=== PATIENT | female | born 1995 | race American Indian/Alaskan Native ===

== ENCOUNTER 2018-11-12 21:07 | Inpatient (IN) | payer OTHER ==
[2018-11-13] MEDS ORDERED: XYLOCAINE 2% INFILTRATI ONE (00:40)
[2018-11-13] MEDS ORDERED: SUBLIMAZE IV PRN (00:40)
[2018-11-13] MEDS ORDERED: MINERAL OIL PO PRN (00:40)
[2018-11-13] MEDS ORDERED: BRETHINE IVP PRN (00:40)
[2018-11-13] MEDS ORDERED: BRETHINE SUB-Q PRN (00:40)
[2018-11-13] MEDS ORDERED: CERVIDIL VG ONE (00:40)
[2018-11-13] MEDS ORDERED: STADOL IV PRN (00:40)
[2018-11-13 01:04] LABS: Hematocrit 30.6 % (30.3-42.9); Hemoglobin 9.9 gm/dl (10.1-14.3); Mean Corpuscular HGB Conc 32 % (30-34); Mean Corpuscular Volume 75 fl (79-97); Platelet Count 164 K/mm3 (140-440); Red Blood Count 4.07 M/mm3 (3.65-5.03)
[2018-11-13] MEDS: LACTATED RINGERS 1,000 ML IV SCH ×3 (02:08→17:27)
[2018-11-13] MEDS ORDERED: AMBIEN PO PRN (02:09)
--- NOTE | 2018-11-13 07:43 | History and Physical Report ---
History of Present Illness Date of examination: 11/13/18 Date of admission: 11/12/18 21:07 Chief complaint: IOL for post-dates gestation Past History Past Medical History: no pertinent history Past Surgical History: no surgical history Family/Genetic History: none Social history: no significant social history - Obstetrical History Expected Date of Delivery: 11/03/18 Actual Gestation: 41 Week(s) 3 Day(s) : 1 Para: 0 Medications and Allergies Allergies Allergy/AdvReac Type Severity Reaction Status Date / Time No Known Allergies Allergy Unverified 11/13/18 00:32 Active Meds: Active Medications Butorphanol Tartrate (Stadol) 2 mg IV Q2H PRN PRN Reason: Pain , Severe (7-10) Ephedrine Sulfate (Ephedrine Sulfate) 10 mg IV Q2M PRN PRN Reason: Hypotension Fentanyl (Sublimaze) 100 mcg IV Q2H PRN PRN Reason: Labor Pain Lactated Ringer's (Lactated Ringers) 1,000 mls @ 125 mls/hr IV DIRECT DELFINA Last Admin: 11/13/18 02:08 Dose: 125 mls/hr Documented by: Mineral Oil (Mineral Oil) 30 ml PO QHS PRN PRN Reason: Constipation Terbutaline Sulfate (Brethine) 0.25 mg SUB-Q ONCE PRN PRN Reason: Hyperstimulation/Hypertonicity Terbutaline Sulfate (Brethine) 0.25 mg IVP ONCE PRN PRN Reason: Hyperstimulation/Hypertonicity Zolpidem Tartrate (Ambien) 5 mg PO QHS PRN PRN Reason: Sleep Last Admin: 11/13/18 02:18 Dose: 5 mg Documented by: Review of Systems All systems: negative - Vital Signs Vital signs: Vital Signs Temp Pulse Resp BP Pulse Ox 97.6 F 67 16 122/73 99 11/13/18 02:05 11/13/18 02:05 11/13/18 02:05 11/13/18 02:05 11/13/18 02:05 Temp Pulse Resp BP Pulse Ox 98.4 F 72 16 127/61 99 11/13/18 06:30 11/13/18 06:30 11/13/18 06:30 11/13/18 03:02 11/13/18 03:00 - Physical Exam Breasts: Positive: deferred Cardiovascular: Regular rate, Normal S1, Normal S2, No murmurs Lungs: Positive: Clear to auscultation Abdomen: Positive: normal appearance, soft Genitourinary (Female): Positive: normal external genitalia Vagina: Positive: normal moisture Uterus: Positive: normal size, normal contour - Obstetrical FHR: auscultation normal, category 1 Uterine Contraction Monitor Mode: External Uterine Contraction Pattern: Irregular Uterine Contraction Intensity: Mild Results Result Diagrams: 11/13/18 00:49 Abnormal lab results 11/13/18 Range/Units 00:49 Hgb 9.9 L (10.1-14.3) gm/dl MCV 75 L (79-97) fl MCH 24 L (28-32) pg RDW 16.0 H (13.2-15.2) % All other labs normal. Assessment and Plan 1. 23 yo at 41.3 wks EGA 2. FHT cat [address] 4. GBS negative Plan: 1. Continue current care 2. Reevaluate labor progress after 12 hours of Cervidil 3. Anticipate
[2018-11-13] MEDS ORDERED: MARCAINE 0.25% INFILTRATI ONE ×2 (17:31→20:12)
[2018-11-13] MEDS ORDERED: NARCAN 2 MG/2 ML IV PRN (17:50)
--- NOTE | 2018-11-13 17:50 | Anesthesia Consultation ---
Anesthesia Consult and Med Hx Date of service: 11/13/18 - Airway Anesthetic Teeth Evaluation: Good ROM Head & Neck: Adequate Mental/Hyoid Distance: Adequate Mallampati Class: Class II Intubation Access Assessment: Good - Cardiac Exam Cardiac Exam: RRR - Pre-Operative Health Status ASA Pre-Surgery Classification: ASA1 Proposed Anesthetic Plan: Epidural - Pulmonary Hx Asthma: No - Cardiovascular System Hx Hypertension: No - Central Nervous System Hx Seizures: No Hx Psychiatric Problems: No - Endocrine Hx Renal Disease: No Hx Hypothyroidism: No Hx Hyperthyroidism: No - Hematic Hx Anemia: No Hx Sickle Cell Disease: No - Other Systems Hx Alcohol Use: No
[2018-11-13] MEDS ORDERED: fentaNYL-BUPIV 2 MCG/ML-0.125% 200 MCG/100 ML BAG EPIDURAL SCH (18:00)
--- NOTE | 2018-11-13 19:40 | Event Note ---
Date: 11/13/18 Patietn is 8/100/-1 Arom light meconium at 720p. Will add pitocin. cat1 strip. continue and expect vaginal delivery
[2018-11-13] MEDS ORDERED: PITOCin/NS 20 UNIT/1000ML DRIP 20,000 MILLIUNITS/1,000 ML BAG IV ONE (19:48)
[2018-11-13] MEDS ORDERED: PITOCin/NS 30 UNIT/500ML 30,000 MILLIUNITS/500 ML BAG IV ONE (19:48)
[2018-11-13] MEDS ORDERED: PITOCin/NS 30 UNIT/500ML 30 UNITS/500 ML BAG IV SCH (20:00)
[2018-11-13] MEDS ORDERED: ANCEF/STERILE WATER 2 GM/20 ML 2 GM/20 ML SYRINGE IV ONE (20:48)
[2018-11-13] MEDS ORDERED: REGLAN ONE (20:48)
[2018-11-13] MEDS ORDERED: PEPCID IV ONE ×2 (20:48→22:19)
[2018-11-13] MEDS ORDERED: BICITRA ONE (20:48)
[2018-11-13] MEDS ORDERED: XYLOCAINE 2%/ EPI 1:200,000 INFILTRATI ONE (20:49)
[2018-11-13] MEDS ORDERED: NACL 0.9% IR ONE (21:00)
[2018-11-13] MEDS ORDERED: WATER FOR IRRIG STERILE IR ONE (21:00)
[2018-11-13] MEDS ORDERED: SUBLIMAZE ONE (21:19)
[2018-11-13] MEDS ORDERED: MARCAINE 0.5% INFILTRATI ONE (21:19)
[2018-11-13] MEDS ORDERED: ZOFRAN ONE (21:35)
[2018-11-13] MEDS ORDERED: TORADOL ONE (21:35)
[2018-11-13] MEDS ORDERED: DILAUDID ONE (21:49)
--- NOTE | 2018-11-13 22:13 | Procedure Note ---
OB Delivery Note - Delivery Date of Delivery: 11/13/18 Surgeon: DANIEL GIRARD Estimated blood loss: other (700cc) - Section Preop diagnosis: nonreassuring FHR tracing Postop diagnosis: same section procedure: section Disposition: PACU Complications: none Narrative: see op note - A at 1 minute: 8 at 5 minutes: 9 Infant Gender: Male (7 pounds 11 oz)
--- NOTE | 2018-11-13 22:18 | Operative Report ---
Operative Report Operative Report: PREOPERATIVE DIAGNOSES: 1. Intrauterine at 41+ weeks 2. NRFHT with bradycardia for 7min. POSTOPERATIVE DIAGNOSES: 1-2 same PROCEDURE PERFORMED: Primary low-transverse section. ANESTHESIA: Epidural. ESTIMATED BLOOD LOSS: 700 mL. COMPLICATIONS: None. FINDINGS: Male infant in cephalic presentation, OP position, weight 7 pounds 11 ounces. Apgars were 8 at 1 minute and 9 at 5 minutes. Normal uterus, tubes, and ovaries were noted. INDICATIONS: The patient is a 23-year-old 1, para 0 female, who presented to labor and delivery for IOL at post dates. She advanced to 9 cm and sustained bradycardia event of 7 min down to the 60s. The procedure was described to the patient in detail including possible risks of bleeding, infection, injury to surrounding organs, and possible need for further surgery. Informed consent was obtained prior to proceeding with the procedure. PROCEDURE NOTE: The patient was taken to the operating room where epidural anesthesia was found to be adequate. The patient was prepped and draped in the usual sterile fashion in the dorsal supine position with a left-adams tilt. A Pfannenstiel skin incision was made with the scalpel and carried through to the underlying layer of fascia using the Bovie. The fascia was incised in the midline and extended laterally using Mercado scissors. Raymundo clamps were used to elevate the superior aspect of the fascial incision, which was elevated, and the underlying rectus muscles were dissected off bluntly and using Mercado scissors. Attention was then turned to the inferior aspect of the fascial incision, which in similar fashion was grasped with Raymundo clamps, elevated, and the underlying rectus muscles were dissected off bluntly and using Mercado scissors. The rectus muscles were dissected in the midline. The peritoneum was bluntly dissected, entered, and extended superiorly and inferiorly with good visualization of the bladder. The bladder blade was inserted. The vesicouterine peritoneum was identified with pickups and entered sharply using Metzenbaum scissors. This incision was extended laterally and the bladder flap was created digitally. The bladder blade was reinserted. The lower uterine segment was incised in a transverse fashion using the scalpel and extended using manual traction. Clear fluid was noted. The was subsequently delivered atraumatically. The nose and mouth were bulb suctioned. The cord was clamped and cut. The infant was subsequently handed to the awaiting nursery nurse. Next, cord blood was obtained per the patients request for cord blood donation, which took several minutes to perform. Subsequent to the collection of this blood, the placenta was removed spontaneously intact with a 3-vessel cord noted. The uterus was exteriorized and cleared of all clots and debris. The uterine incision was repaired in 2 layers using 0 chromic suture. Hemostasis was visualized. surgicell placed for great hemostasis. The uterus was returned to the abdomen. The pelvis was copiously irrigated. The uterine incision was reexamined and was noted to be hemostatic. The rectus muscles were reapproximated in the midline using 3-0 Vicryl. The fascia was closed with 0 Vicryl, the subcutaneous layer was closed with 3-0 plain gut, and the skin was closed with Daniel needle. Sponge, lap, and instrument counts were correct x2. The patient was stable at the completion of the procedure and was subsequently transferred to the recovery room in stable condition.
[2018-11-13] MEDS ORDERED: MILK OF MAGNESIA PO PRN (22:19)
[2018-11-13] MEDS ORDERED: ANUCORT-HC PR PRN (22:19)
[2018-11-13] MEDS ORDERED: TYLENOL PO PRN (22:19)
[2018-11-13] MEDS ORDERED: MYLICON PO PRN (22:19)
[2018-11-13] MEDS ORDERED: TUCKS PAD TP PRN (22:19)
[2018-11-13] MEDS ORDERED: REGLAN IV ONE (22:19)
[2018-11-13] MEDS ORDERED: LANSINOH TP PRN (22:19)
[2018-11-13] MEDS ORDERED: BICITRA PO ONE (22:19)
[2018-11-13] MEDS ORDERED: SENOKOT PO PRN (22:19)
[2018-11-13] MEDS ORDERED: ZOFRAN IV PRN ×2 (22:19→22:20)
[2018-11-13] MEDS ORDERED: NARCAN 0.4 MG/1 ML IV PRN ×2 (22:19→22:20)
[2018-11-13] MEDS ORDERED: PHENERGAN PR PRN ×2 (22:19→22:20)
[2018-11-13] MEDS ORDERED: TORADOL IV PRN ×2 (22:19)
[2018-11-13] MEDS ORDERED: MORPHINE IV PRN ×3 (22:19→22:20)
[2018-11-13] MEDS ORDERED: DILAUDID IV PRN (22:20)
[2018-11-13] MEDS ORDERED: PHENERGAN PO PRN (22:20)
--- NOTE | 2018-11-13 22:20 | Anesthesia Day of Surgery ---
Anesthesia Day of Surgery - Day of Surgery Patient Examined: Yes Patient H&P Reviewed: Yes Patient is NPO: Yes
--- NOTE | 2018-11-13 22:22 | Post Anesthesia Evaluation ---
- Post Anesthesia Evaluation Patient Participated: Yes Airway Patent: Yes Stable Respiratory Function: Yes Nausea/Vomiting: No Temp > 96.8F: Yes Pain Manageable: Yes Adequeate Hydration: Yes Anesthesia Complications: No Block Receding Appropriately: Yes Patient on Ventilator: Yes
[2018-11-13] MEDS ORDERED: PITOCin/NS 20 UNIT/1000ML DRIP 20 UNITS/1,000 ML BAG IV SCH ×2 (23:00)
[2018-11-13] MEDS ORDERED: ANCEF/STERILE WATER 2 GM/20 ML 2 GM/20 ML SYRINGE IV NR (23:00)
[2018-11-13] MEDS ORDERED: D5LR 1,000 ML IV SCH (23:00)
[2018-11-13] MEDS ORDERED: SODIUM CHLORIDE FLUSH SYRINGE 10 ML IV PRN ×2 (23:00)
[2018-11-13] MEDS ORDERED: LACTATED RINGERS 1,000 ML IV SCH (23:00)
[2018-11-14 00:27] LABS: Hematocrit 30.1 % (30.3-42.9); Hemoglobin 9.5 gm/dl (10.1-14.3); Mean Corpuscular HGB Conc 32 % (30-34); Mean Corpuscular Volume 77 fl (79-97); Platelet Count 169 K/mm3 (140-440); Red Cell Distribution Width 16.5 % (13.2-15.2)
[2018-11-14] MEDS: IBUPROFEN PO PRN ×3 (02:57→22:41)
[2018-11-14] MEDS: NORCO 5/325 PO PRN (02:58)
[2018-11-14 04:52] LABS: Basophils % (Manual) 0 % (0.0-1.8); Eosinophils % (Manual) 0 % (0.0-4.3); Total Cells Counted 100
[2018-11-14 04:53] LABS: Anisocytosis 1+; Hypochromasia 1+; Large Platelets 1+; Platelet Estimate Consistent w Auto
--- NOTE | 2018-11-14 08:23 | Progress Note ---
Assessment and Plan 1. POD1 s/p primary LTCS for NRFHT 2. Vitals stable 3. Iron deficiency anemia 4. Breast feeding- knowledge deficit Plan: 1. Remove catheter and begin ambulation when tolerated 2. Iron supplementation 3. consult ordered 4. Expect d/c on POD3 Subjective - Subjective Date of service: 11/14/18 Principal diagnosis: Post op day 1 Interval history: Post op day 1 s/p primary for non reassuring heart tones. Patient reports: appetite normal, pain well controlled, flatus [place]: doing well Objective - Vital Signs Latest vital signs: Vital Signs Temp Pulse Resp BP BP Pulse Ox 11/14/18 04:59 98.9 F 69 20 119/62 97 11/13/18 23:30 98.1 F 72 16 99/72 99 11/13/18 23:05 98.7 F 67 20 126/49 100 11/13/18 22:50 68 23 128/63 100 11/13/18 22:35 108 H 22 146/77 100 11/13/18 22:20 98 H 25 H 137/73 100 11/13/18 22:15 90 18 134/70 99 11/13/18 22:10 85 30 H 118/71 100 11/13/18 22:05 99.2 F 104 H 26 H 128/39 100 11/13/18 20:35 71 132/63 11/13/18 20:20 63 132/62 11/13/18 20:06 69 134/68 11/13/18 19:51 71 125/66 11/13/18 19:37 68 130/72 11/13/18 19:35 68 125/71 11/13/18 19:21 63 116/65 05 19:06 78 118/59 05 18:51 72 113/56 05 18:33 74 118/58 05 18:31 104 H 122/58 05 18:29 106 H 123/59 05 18:27 79 123/62 0519 18:25 77 114/57 05 18:23 81 119/58 05 18:21 73 122/61 05 18:18 80 114/57 05 18:17 90 112/56 11/13/18 18:15 82 118/56 11/13/18 18:13 76 120/57 11/13/18 18:11 72 126/61 11/13/18 18:09 80 117/57 11/13/18 18:07 68 126/61 11/13/18 18:05 70 119/57 11/13/18 18:03 76 124/60 11/13/18 18:01 69 124/58 11/13/18 18:00 97.4 F L 11/13/18 17:59 69 123/58 11/13/18 17:57 72 124/60 11/13/18 17:55 75 136/62 11/13/18 17:53 73 135/64 11/13/18 17:51 91 H 130/55 11/13/18 17:49 71 132/66 11/13/18 17:47 78 137/67 11/13/18 17:45 73 141/68 11/13/18 17:43 93 H 157/76 11/13/18 17:14 71 127/61 11/13/18 14:17 20 Intake and Output 11/13/18 11/14/18 11/14/18 23:59 07:59 15:59 Intake Total 1395.833 120 Output Total 950 600 Balance 445.833 -480 Intake: IV 1395.833 Lactated Ringers 1,000 ml 95.833 @ 125 mls/hr IV DIRECT DELFINA Rx#:[id number] Oral 120 Output: Urine 950 600 Indwelling Catheter 500 600 Other: Total, Intake Amount 120 Total, Output Amount 500 600 Estimated Blood Loss 700 - Exam Breasts: Present: normal Cardiovascular: Present: Regular rate Lungs: Present: Clear to auscultation, Normal air movement Abdomen: Present: normal appearance, soft, normal bowel sounds Uterus: Present: normal, firm, fundal height below umbilicus Extremities: Present: normal Incision: Present: normal, dry, intact - Labs Labs: Abnormal lab results 11/13/18 Range/Units 23:43 WBC 14.0 H (4.5-11.0) K/mm3 Hgb 9.5 L (10.1-14.3) gm/dl Hct 30.1 L (30.3-42.9) % MCV 77 L (79-97) fl MCH 24 L (28-32) pg RDW 16.5 H (13.2-15.2) % Seg Neuts % (Manual) 94.0 H (40.0-70.0) % Lymphocytes % (Manual) 3.0 L (13.4-35.0) % Seg Neutrophils # Man 13.2 H (1.8-7.7) K/mm3 Lymphocytes # (Manual) 0.4 L (1.2-5.4) K/mm3
[2018-11-14] MEDS ORDERED: FEOSOL PO SCH (10:00)
[2018-11-14] MEDS: FEOSOL PO SCH ×2 (10:29→22:41)
[2018-11-14] MEDS: PRENATAL VITAMIN PO SCH (10:29)
[2018-11-14] MEDS: PERCOCET 5/325 PO PRN ×3 (10:38→22:41)
[2018-11-14 11:22] LABS: Hematocrit 26.4 % (30.3-42.9); Hemoglobin 8.6 gm/dl (10.1-14.3)
[2018-11-14] MEDS ORDERED: M-M-R II VACCINE SUB-Q ONE (22:20)
[2018-11-15] MEDS: IBUPROFEN PO PRN ×3 (05:41→18:12)
[2018-11-15] MEDS: PERCOCET 5/325 PO PRN ×2 (05:42→17:25)
[2018-11-15] MEDS ORDERED: BOOSTRIX IM ONE (06:00)
--- NOTE | 2018-11-15 08:01 | Progress Note ---
Assessment and Plan A: POD#2 s/p primary section, Asymptomatic anemia P: Routine postoperative care. Anticipate discharge tomorrow. Subjective - Subjective Date of service: 11/15/18 Principal diagnosis: Post op day 1 Interval history: + flatus. No bowel movement Patient reports: appetite normal, pain well controlled, flatus, ambulating normally, no bowel movement [place]: doing well Objective - Vital Signs Latest vital signs: Vital Signs Temp Pulse Resp BP Pulse Ox 11/14/18 17:16 97.9 F 84 18 118/48 96 11/14/18 11:59 98 F 91 H 18 123/80 Intake and Output 11/14/18 11/15/18 11/15/18 22:59 06:59 14:59 Output Total 800 Balance -800 Output: Urine 800 Void 800 Other: Total, Output Amount 400 # Voids Void 2 - Exam Breasts: Present: deferred Cardiovascular: Present: Regular rate Lungs: Present: Clear to auscultation Abdomen: Present: soft Uterus: Present: fundal height at umbilicus Extremities: Present: normal Incision: Present: intact (with steristrips ) - Labs Labs: Abnormal lab results 11/13/18 11/14/18 Range/Units 23:43 10:50 WBC 14.0 H (4.5-11.0) K/mm3 Hgb 9.5 L 8.6 L (10.1-14.3) gm/dl Hct 30.1 L 26.4 L (30.3-42.9) % MCV 77 L (79-97) fl MCH 24 L (28-32) pg RDW 16.5 H (13.2-15.2) % Seg Neuts % (Manual) 94.0 H (40.0-70.0) % Lymphocytes % (Manual) 3.0 L (13.4-35.0) % Seg Neutrophils # Man 13.2 H (1.8-7.7) K/mm3 Lymphocytes # (Manual) 0.4 L (1.2-5.4) K/mm3
[2018-11-15] MEDS: PRENATAL VITAMIN PO SCH (11:50)
[2018-11-15] MEDS: FEOSOL PO SCH ×2 (11:50→22:00)
[2018-11-15] MEDS: NORCO 5/325 PO PRN (11:51)
[2018-11-16] MEDS: IBUPROFEN PO PRN ×2 (00:41→06:10)
[2018-11-16] MEDS: PERCOCET 5/325 PO PRN ×2 (06:12→10:10)
--- NOTE | 2018-11-16 09:22 | Progress Note ---
Assessment and Plan 1. POD3 s/p primary LTCS for NRFHT 2. Anemia 3. Breast and bottle feeding, poor supply 4. Normal bowel sounds Plan: 1. Discharge to home today 2. Iron supplementation 3. Start pumping breasts 4. Continue colace and milk of magnesia 5. Return to office in 1 week for incision check Subjective - Subjective Date of service: 11/16/18 Principal diagnosis: Post op day 1 Interval history: Post op day 1 s/p primary for non reassuring heart tones. Patient reports: appetite normal, voiding normally, pain well controlled, flatus, ambulating normally : doing well Objective - Vital Signs Latest vital signs: Vital Signs Temp Pulse Resp BP 11/16/18 06:12 18 11/16/18 06:10 18 11/16/18 01:41 18 11/16/18 00:41 18 11/16/18 00:00 98.7 F 74 16 102/72 11/15/18 19:12 18 11/15/18 16:56 98.0 F 77 18 115/55 Intake and Output 11/15/18 11/16/18 11/16/18 23:59 07:59 15:59 Intake Total 480 Balance 480 Intake: Oral 480 Other: Total, Intake Amount 480 - Exam Breasts: Present: deferred Cardiovascular: Present: Regular rate, Normal S1, Normal S2, No murmurs Lungs: Present: Clear to auscultation, Normal air movement Abdomen: Present: normal appearance, soft, normal bowel sounds Uterus: Present: normal, firm, fundal height below umbilicus Extremities: Present: normal Incision: Present: normal, dry, intact - Labs Labs: Hgb 8.9 mg/dL
[2018-11-16 09:24] VITALS: BP 102/56
--- NOTE | 2018-11-16 09:26 | Discharge Summary ---
<DEVANTE SANCHEZ - Last Filed: 11/16/18 09:27> Providers - Providers Date of Admission: 11/12/18 21:07 Date of discharge: 11/16/18 Attending physician: DANIEL GIRARD MD 11/14/18 09:19 Consult to [employer]er [CONS] Stat Reason For Exam: New mom Primary care physician: DANIEL GIRARD MD Hospitalization Reason for admission: induction of labor Delivery: Procedure: section, primary low transverse Episiotomy: none Incision: normal, dry, intact Other procedures: none complications: none Discharge diagnosis: IUP at term delivered [address] baby: male Condition at discharge: Good Disposition: DC-01 TO HOME OR SELFCARE - Discharge Diagnoses (1) Anemia Status: Acute Qualifiers: Anemia type: unspecified type Qualified Code(s): D64.9 - Anemia, unspecified (2) delivery delivered Status: Acute Plan - Discharge Medications Prescriptions: Docusate Sodium [Colace CAP] 100 mg PO BID #30 capsule Ferrous Sulfate [Feosol 325 MG tab] 325 mg PO BID #30 tablet Ibuprofen [Motrin] 600 mg PO Q8H PRN #30 tablet PRN Reason: Pain oxyCODONE /ACETAMINOPHEN [Percocet 5/325] 1 tab PO Q4HR #30 tab - Provider Discharge Summary Activity: no sex for 6 weeks, no heavy lifting 4 weeks, no strenuous exercise Diet: routine Instructions: other (Call [facility] office to schedule incision check in 1 week, and visit in 4 weeks) Additional instructions: [] Smoking cessation referral if applicable(refer to patient education folder for contact #) [] Refer to [facility]'s [facility] Booklet Call your doctor immediately for: * Fever > 100.5 * Heavy vaginal bleeding ( >1 pad per hour) * Severe persistent headache * Shortness of breath * Reddened, hot, painful area to leg or breast * Drainage or odor from incision. * Keep incision clean and dry at all times and follow doctor's instructions regarding bathing/showering - Follow up plan Follow up: DEVANTE SANCHEZ CNM [Advanced Practice Nurse] - 11/27/18 (please schedule incision check ) Forms: Discharge Signature Page <MIKE ESTES - Last Filed: 11/16/18 13:10> Providers - Providers Date of Admission: 11/12/18 21:07 Attending physician: DANIEL GIRARD MD 11/14/18 09:19 Consult to L[employer]er [CONS] Stat Reason For Exam: New mom Primary care physician: DANIEL GIRARD MD Plan - Provider Discharge Summary Additional instructions: [] Smoking cessation referral if applicable(refer to patient education folder for contact #) [] Refer to [facility]'s [facility] Booklet Call your doctor immediately for: * Fever > 100.5 * Heavy vaginal bleeding ( >1 pad per hour) * Severe persistent headache * Shortness of breath * Reddened, hot, painful area to leg or breast * Drainage or odor from incision. * Keep incision clean and dry at all times and follow doctor's instructions regarding bathing/showering
[2018-11-16] MEDS ORDERED: COLACE PO SCH (10:00)
[2018-11-16] MEDS: FEOSOL PO SCH (10:10)
== END 2018-11-16 14:20 | disposition home or self-care (01) | DRG 766 ==
LOC: LD 21:07 → OB 11-13 23:36
PROVIDERS: ADMIT Obstetrics & Gynecology; ATTEND Obstetrics & Gynecology
PROC: 10D00Z1 Extraction of Products of Conception, Low, Open Approach (ICD-10-PCS; principal; 2018-11-13)
PROC: 10907ZC Drainage of Amniotic Fluid, Therapeutic from Products of Conception, Via Natural or Artificial Opening (ICD-10-PCS; 2018-11-13)
PROC: 3E0234Z Introduction of Serum, Toxoid and Vaccine into Muscle, Percutaneous Approach (ICD-10-PCS; 2018-11-14)
DX: O76 Abnormality in fetal heart rate and rhythm complicating labor and delivery (principal); O75.0 Maternal distress during labor and delivery; O99.89 Other specified diseases and conditions complicating pregnancy, childbirth and the puerperium; R00.1 Bradycardia, unspecified; O99.02 Anemia complicating childbirth; D50.0 Iron deficiency anemia secondary to blood loss (chronic); O77.0 Labor and delivery complicated by meconium in amniotic fluid; Z3A.41 41 weeks gestation of pregnancy; Z37.0 Single live birth; Z23 Encounter for immunization
CPT/HCPCS: 36415; 85007; 85014; 85018; 85025; 85027; 86592; 86850; 86900; 86901; G0378; C9250; J0595; J0690; J1170; J1885; J2405; J2590; J2765; J3010; J7120; J7121